=== PATIENT | male | born 1955 | race Caucasian/White ===

== ENCOUNTER 2018-10-22 22:58 | Emergency (ER) | payer MEDICARE ==
--- NOTE | 2018-10-22 23:00 | ER Report ---
History and Physical Time Seen By MD: 22:59 HPI/ROS CHIEF COMPLAINT: [place] retention HISTORY OF PRESENT ILLNESS: 63-year-old male traveling back home to [facility] began suffering urinary retention. He had iced tea for dinner and then was holding his urine when he began to have trouble. He's been unable to void for several hours. He feels urinary pressure. Patient does have a history of catheters in the past. He is followed by a urologist. He has catheters at home, but he did not bring any of them on this trip with him. He does self catheterize. Patient notes no urinary burning or hematuria. Reviewed Nurses Notes: Yes Old Medical Records Reviewed: Yes Constitutional Vital Sign - Last 24 Hours 10/22/18 10/22/18 10/22/18 10/22/18 22:58 23:02 23:04 23:28 Temp 98.0 Pulse ??? 89 73 Resp 18 B/P (MAP) 242/138 242/138 (172) Pulse Ox 90 89 10/22/18 10/22/18 10/23/18 23:30 23:58 00:00 Pulse 69 B/P (MAP) 189/102 (131) 177/100 (125) Pulse Ox 88 Physical Exam General Appearance: The patient is alert, has no immediate need for airway protection and no current signs of toxicity., Blood pressure grossly elevated, moderate distress Eyes: Pupils equal and round no injection. Respiratory: Chest is non tender, lungs are clear to auscultation. Cardiac: regular rate and rhythm Gastrointestinal: Abdomen is soft and non tender, no masses, bowel sounds normal. Suprapubic tenderness Musculoskeletal: Neck: Neck is supple and non tender. Extremities have full range of motion and are non tender. Skin: No rashes or lesions. DIFFERENTIAL DIAGNOSIS: After history and physical exam differential diagnosis was considered for urinary retention including but not limited to medication side effect, neurologic causes, outflow obstruction including prostatic hypertrophy, and blood. Medical Decision Making Data Points Laboratory Hematology Test 10/22/18 23:17 Urine Color straw Urine Clarity clear Urine pH 6.0 pH (4.8-9.5) Urine Specific [place] 1.008 Urine Protein 100 mg/dL (NEGATIVE) Urine Glucose (UA) 500 mg/dL (NEGATIVE) Urine Ketones Negative mg/dL (NEGATIVE) Urine Blood Large (NEGATIVE) Urine Nitrite Negative (NEGATIVE) Urine Bilirubin Negative (NEGATIVE) Urine Urobilinogen 0.2 mg/dL (0.2-1.9) Urine Leukocyte Esterase Negative (NEGATIVE) Urine RBC 111 /HPF (0-2/HPF) Urine WBC 2 /HPF (0-5/HPF) Urine WBC Clumps Few /HPF Urine Squamous Epithelial Cells None /LPF (NONE-FEW) Urine Bacteria Negative /HPF (NONE-FEW) Urine Mucus None /HPF (NONE-FEW) Chemistry Test 10/22/18 23:17 Urine Color straw Urine Clarity clear Urine pH 6.0 pH (4.8-9.5) Urine Specific [place] 1.008 Urine Protein 100 mg/dL (NEGATIVE) Urine Glucose (UA) 500 mg/dL (NEGATIVE) Urine Ketones Negative mg/dL (NEGATIVE) Urine Blood Large (NEGATIVE) Urine Nitrite Negative (NEGATIVE) Urine Bilirubin Negative (NEGATIVE) Urine Urobilinogen 0.2 mg/dL (0.2-1.9) Urine Leukocyte Esterase Negative (NEGATIVE) Urine RBC 111 /HPF (0-2/HPF) Urine WBC 2 /HPF (0-5/HPF) Urine WBC Clumps Few /HPF Urine Squamous Epithelial Cells None /LPF (NONE-FEW) Urine Bacteria Negative /HPF (NONE-FEW) Urine Mucus None /HPF (NONE-FEW) Urinalysis Test 10/22/18 23:17 Urine Color straw Urine Clarity clear Urine pH 6.0 pH (4.8-9.5) Urine Specific [place] 1.008 Urine Protein 100 mg/dL (NEGATIVE) Urine Glucose (UA) 500 mg/dL (NEGATIVE) Urine Ketones Negative mg/dL (NEGATIVE) Urine Blood Large (NEGATIVE) Urine Nitrite Negative (NEGATIVE) Urine Bilirubin Negative (NEGATIVE) Urine Urobilinogen 0.2 mg/dL (0.2-1.9) Urine Leukocyte Esterase Negative (NEGATIVE) Urine RBC 111 /HPF (0-2/HPF) Urine WBC 2 /HPF (0-5/HPF) Urine WBC Clumps Few /HPF Urine Squamous Epithelial Cells None /LPF (NONE-FEW) Urine Bacteria Negative /HPF (NONE-FEW) Urine Mucus None /HPF (NONE-FEW) ED Course/Re-evaluation ED Course Patient was admitted to an examination room. H&P was done. The differential diagnosis was considered. Patient presents with urinary retention. He is a long history of urinary retention. He self catheterizes. He's on vacation. He forgot to bring any spare catheters with him. A Miles catheter is inserted. He has 800 mL output and is clamped. There is a trace hematuria and urinalysis. No obvious infection. Patient's equipped with a leg bag. He is advised to follow-up with his urologist early next week when he gets back home to [facility]. Decision to Disposition Date: Oct 22, 2018 Decision to Disposition Time: 23:30 Depart Departure Latest Vital Signs Vital Signs Date Time Temp Pulse Resp B/P (MAP) Pulse Ox O2 Delivery O2 Flow Rate FiO2 10/23/18 00:00 177/100 (125) 10/22/18 23:58 69 88 10/22/18 23:02 98.0 18 Impression: Primary Impression: Urinary retention Additional Impression: Hypertension Condition: Improved Disposition: HOME OR SELF-CARE Patient Instructions: Hypertension (ED), Urinary Retention in Men (ED) Additional Instructions: Follow-up with your urologist as needed. Upon returning home to [place] Problem Qualifiers Additional Impression: Hypertension Hypertension type: essential hypertension Qualified Codes: I10 - Essential (primary) hypertension TRANG CHOI DO Oct 22, 2018 23:00
[2018-10-23] VITALS: BP 177/100
== END 2018-10-23 00:10 | disposition home or self-care (01) ==
LOC: ER 23:33
DX: R33.9 Retention of urine, unspecified (principal); I10 Essential (primary) hypertension
CPT/HCPCS: 51702; 81001; 99283